=== PATIENT | male | born 1980 | race Caucasian/White ===

== ENCOUNTER 2021-07-26 16:55 | Emergency (ER) | payer BC, SELFPAY ==
--- NOTE | ~2021-07-26 | XR_ITS ---
EXAM: XR tibia fibula RT 2V HISTORY: CUT MID R TIB/FIB W/ AXE TODAY, LARGE LACERATION COMPARISON: None available FINDINGS: Normal mineralization. No fracture or dislocation. No lytic or blastic lesion. Joint space s maintained. No erosion or periosteal change. Soft tissues within normal limits. IMPRESSION: No acute osseous finding in the left tibia/fibula Reviewed, dictated and finalized at location K.
[2021-07-26] MEDS: LIDO 1%/EPINEPHRINE 1:100,000 20 ML VIAL (17:39)
[2021-07-26] MEDS: TETANUS,DIPHTHERIA,AC PERTUSSIS ADULT (0.5 ML) BOOSTRIX (17:40)
--- NOTE | 2021-07-26 17:53 | ED.WOUNDLAC ---
HPI - Wound/Laceration General Chief Complaint: Wound/Laceration Stated Complaint: leg injury/lac Time Seen by Provider: 07/26/21 17:08 Source: patient Mode of arrival: ambulatory Limitations: no limitations History of Present Illness HPI narrative: This is a 41-year-old male that presents to the emergency department for laceration to the right lower leg sustained just prior to arrival. Reports he was chopping wood with an ax and accident cut his left lower leg. Reports bleeding and pain to the area. He is not up-to-date on tetanus. Denies numbness. Related Data Home Medications Medication Instructions Recorded Confirmed No Home Medications 07/26/21 07/26/21 Allergies Allergy/AdvReac Type Severity Reaction Status Date / Time No Known Allergies Allergy Verified 07/26/21 17:38 Review of Systems Review of Systems: CONSTITUTIONAL: Denies fever SKIN: Reports laceration MUSCULOSKELETAL: Reports myalgia. NEUROLOGIC: Denies numbness All systems reviewed & are unremarkable except as noted in HPI and below PMFSH Past Medical History Medical History (Updated 07/26/21 @ 19:09 by Kelsey Xiong PA-C) No active medical problems Social History Social History (Updated 07/26/21 @ 17:55 by Kelsey Xiong PA-C) Smoking status: Current every day smoker Exam Narrative: GENERAL: Well-appearing, well-nourished, and in no acute distress. HEAD: Normocephalic, atraumatic. EYES: EOMI. EXTREMITIES: Normal range of motion. No edema. 3 cm linear laceration into subcutaneous tissue over the right, medial lower leg SKIN: Warm, dry, no rash. NEURO: No focal deficits. Alert and oriented x3. PSYCH: Normal mood and affect Course Vital Signs Vital signs: Vital Signs Temperature 98.1 F 07/26/21 18:43 Pulse Rate 84 07/26/21 18:43 Respiratory Rate 16 07/26/21 18:43 Blood Pressure 152/86 H 07/26/21 18:43 Pulse Oximetry 99 07/26/21 18:43 Temperature 98.1 F 07/26/21 18:43 Pulse Rate 84 07/26/21 18:43 Respiratory Rate 16 07/26/21 18:43 Blood Pressure 152/86 H 07/26/21 18:43 Pulse Oximetry 99 07/26/21 18:43 Procedures Laceration Laceration 1: Date: 07/26/21 Time: 19:07 Site: lower extremity Side (If applicable): right Size (cm): 3 Description: linear Depth: simple, single layer Local Anesthetic: lidocaine 1% and with epi Amount of anesthesia used (mL): 4 Pre-repair: irrigated ====== Skin Level ====== Skin layer closed with: nylon Size (cm): 4-0 Number of sutures: 7 Technique: simple, interrupted and horizontal mattress ====== Subcutaneous Layer ====== ====== Muscle Layer ====== ====== Tendon Layer ====== MDM - Wound/Laceration MDM Narrative Medical decision making narrative: Patient presents to the emergency department for a laceration to the right lower leg sustained just prior to arrival. Patient is neurovascularly intact. Right tib-fib x-ray without acute osseous findings or evidence of foreign body. Wound was irrigated and closed with sutures. Patient and family educated on wound care. He was updated on tetanus. He is to follow-up with primary care doctor. He was given warnings to return to the ER Imaging Data Radiologist's impression: ITS Impressions Tibia/Fibula X-Ray 07/26/21 18:27 IMPRESSION: No acute osseous finding in the left tibia/fibula ADDENDUM: 07/26/21 0693 The original report contains an error in the impression and should read as follows, No acute osseous finding in the RIGHT tibia/fibula. Critical Care Time Critical Care Time Critical Care Time: No Discharge Plan Discharge Clinical Impression: Laceration Patient Disposition: Home, Self-Care Condition: Stable Instructions: Care For Your Stitches (ED), Laceration (ED) Additional Instructions: Return to the emergency department if you experience fev
[2021-07-26 18:43] VITALS: BP 152/86; PULSE 84; RESP 16; TEMP 36.7; O2SAT 99
== END 2021-07-26 19:28 | disposition home or self-care (01) ==
PROVIDERS: Emergency Provider Emergency Medicine
DX: S81.811A Laceration without foreign body, right lower leg, initial encounter (principal); Z23 Encounter for immunization; F17.200 Nicotine dependence, unspecified, uncomplicated; W27.0XXA Contact with workbench tool, initial encounter
CPT/HCPCS: 12002; 73590; 90471; 90715; 99283

== ENCOUNTER 2022-03-18 18:34 | Emergency (ER) | payer BC, SELFPAY ==
[2022-03-18 18:35] VITALS: BP 132/84; PULSE 106; RESP 18; TEMP 36.3; O2SAT 98
--- NOTE | 2022-03-18 18:43 | ED.ANIMALBIT ---
HPI - Animal Bite General Chief Complaint: Animal Bite Stated Complaint: DOG BITE TO NOSE Time Seen by Provider: 03/18/22 18:42 History of Present Illness HPI narrative: 42-year-old male whose tetanus status is up-to-date presents to the emergency room for evaluation of a dog bite to his nose. Patient states he was picking up his dog when it snapped and bit him of the nose. Bleeding is controlled on arrival Related Data Allergies Allergy/AdvReac Type Severity Reaction Status Date / Time No Known Allergies Allergy Verified 07/26/21 17:38 Review of Systems Review of Systems: CONSTITUTIONAL: Denies fever, chills, or sweats. EYES: Denies visual changes, redness, or discharge. ENT: Denies rhinorrhea, congestion, sore throat, or otalgia. CARDIOVASCULAR: Denies chest pain, palpitations, or edema. RESPIRATORY: Denies cough or dyspnea. GASTROINTESTINAL: Denies abdominal pain, nausea, vomiting, or diarrhea. GENITOURINARY: Denies dysuria or hematuria. SKIN: Reports lacerations to nose MUSCULOSKELETAL: Denies back pain, joint pain, or myalgia. NEUROLOGIC: Denies headache, numbness, dizziness, or weakness. PSYCHIATRIC: Denies anxiety or depression. PMFSH Past Medical History Medical History No active medical problems Social History Social History Smoking status: Current every day smoker Exam Narrative: GENERAL: Well-appearing, well-nourished, no physical limitations, and in no acute distress. HEAD: Normocephalic, atraumatic. EYES: Conjunctivae normal, PERRLA and EOMI. ENT: 2 cm laceration to left side of nose, 1 cm laceration to right side NECK: Supple. No meningeal signs. No adenopathy or masses. No carotid bruits or JVD CHEST: Clear to auscultation. No respiratory distress. No wheezes rales or rhonchi. No tenderness. HEART: Regular rate and rhythm. No murmur heard. Normal peripheral pulses. EXTREMITIES: Normal range of motion. No edema. No clubbing or cyanosis SKIN: Warm, dry, no rash. No noted wounds NEURO: No focal deficits. Alert and oriented x3. MAEW. CN's II-XI intact bilaterally, normal gait PSYCH: Cooperative. Normal mood and affect. Course Vital Signs Vital signs: Vital Signs Temperature 36.3 C L 03/18/22 18:35 Pulse Rate 106 H 03/18/22 18:35 Respiratory Rate 18 03/18/22 18:35 Blood Pressure 132/84 03/18/22 18:35 Pulse Oximetry 98 03/18/22 18:35 Temperature 36.3 C L 03/18/22 18:35 Pulse Rate 106 H 03/18/22 18:35 Respiratory Rate 18 03/18/22 18:35 Blood Pressure 132/84 03/18/22 18:35 Pulse Oximetry 98 03/18/22 18:35 Procedures Laceration Laceration 1: Date: 03/18/22 Time: :29 Site: face Side (If applicable): left Size (cm): 2 Description: linear Depth: simple, single layer Local Anesthetic: lidocaine 1% Amount of anesthesia used (mL): 4 Pre-repair: irrigated ====== Skin Level ====== Skin layer closed with: nylon Size (cm): 6-0 Number of sutures: 2 Technique: simple, interrupted ====== Subcutaneous Layer ====== ====== Muscle Layer ====== ====== Tendon Layer ====== Discharge Plan Discharge Clinical Impression: Bite by animal, Dog bite Patient Disposition: Home, Self-Care Condition: Stable Instructions: Antibiotic Form, Animal Bite (ED), Care For Your Stitches (ED), Laceration (ED) Additional Instructions: Sutures come out in 5 days. Monitor for signs of infection which include redness, swelling, tenderness purulent discharge. May take ibuprofen as needed for discomfort. Keep wound clean and dry Prescriptions: New amoxicillin-pot clavulanate 875-125 mg tablet 1 tablet PO Q12H 10 Days Qty: 20 0RF Follow-up/Referrals: PHYSICIAN,DIRECTOR OF [employer]POR[employer] [Primary Care Provider] - Time of Disposition: 20:30
== END 2022-03-18 20:58 | disposition home or self-care (01) ==
PROVIDERS: Emergency Provider Nurse Practitioner Family
DX: S01.25XA Open bite of nose, initial encounter (principal); F17.200 Nicotine dependence, unspecified, uncomplicated; W54.0XXA Bitten by dog, initial encounter
CPT/HCPCS: 12011; 99283